=== PATIENT | male | born 1975 | race Caucasian/White ===

== ENCOUNTER 2016-05-21 12:42 | Day surgery (SDC) | payer OTHER ==
[~2016-05-21 12:42] MED LIST: DIPHENHYDRAMINE HCL 50 MG/ML VIAL ONE; EPINEPHRINE INJ 1 MG/10 ML DISP.SYRIN ONE; FLUMAZENIL INJ 0.5 MG/5 ML VIAL IV ONE; GLUCAGON,HUMAN RECOMB 1 MG INJ ONE; MIDAZOLAM 2 MG/2 ML INJ ONE; NALOXONE HCL INJ/PF 0.4 MG/1 ML SDV ONE; ONDANSETRON HCL INJ/PF 4 MG/2 ML SDV ONE; PROMETHAZINE HCL INJ 25 MG/1 ML VIAL ONE
[2016-05-21] MEDS: MIDAZOLAM 2 MG/2 ML INJ ONE ×2 (12:53→13:00)
[2016-05-21] MEDS: FENTANYL CITRATE INJ/PF 100 MCG/2 ML AMPUL ONE ×2 (12:55→12:57)
--- NOTE | 2016-05-21 13:14 | Operative Report ---
Operative Report DATE OF SURGERY: 05/21/16 Operative Report: The risks, benefits and alternatives of the procedure including risks of bleeding, perforation requiring surgery are explained to the patient in detail and informed consent is obtained. Patient was place in a left lateral decubital position. Timeout is called. Conscious sedation medications are provided. A rectal examination is done which did not reveal any masses tears or fissures. An Olympus was scope was inserted into the patient's rectum. Keeping the lumen in site at all times scope was then gradually advanced all the way to the cecum. The cecum as identified by the usual anatomical landmarks including the ileocecal valve as well as the appendiceal office. Photodocumentation was obtained. Prep was reasonably good. The scope was then sequentially pulled back via the rest symptoms of the colon including the ascending colon, hepatic flexure, splenic flexure descending colon and finally into the rectosigmoid portions of the colon. Retroflexion maneuvers performed. PREOPERATIVE DIAGNOSIS: Rectal bleeding. POSTOPERATIVE DIAGNOSIS: Internal hemorrhoids. Mild right-sided inflammation status post biopsy OPERATION: Colonoscopy with biopsy SURGEON: JEFF ZEPEDA ANESTHESIA: Moderate Sedation - 4 mg of Versed, 100 g of fentanyl. TISSUE REMOVED OR ALTERED: Colon specimens are obtained COMPLICATIONS: None. ESTIMATED BLOOD LOSS: none. INTRAOPERATIVE FINDINGS: No masses, AVMs, diverticulosis noted. Internal hemorrhoids likely explaining the patient's rectal bleeding. PROCEDURE: Patient tolerated the procedure well. No immediate postprocedure complications are noted. Patient is discharged in good condition. Discharge date 05/21/2016. Discharge diet: Regular. Discharge activity: Regular. 2-3 follow-up to discuss findings. Patient is instructed to call the office or proceed to the emergency room after any further problems or questions. We'll follow-up on biopsies.
[2016-05-21 14:06] VITALS: BP 113/52
== END 2016-05-21 14:10 | disposition home or self-care (01) ==
LOC: END 12:42
PROVIDERS: ATTEND Internal Medicine Gastroenterology
PROC: 0DBF8ZX Excision of Right Large Intestine, Via Natural or Artificial Opening Endoscopic, Diagnostic (ICD-10-PCS; principal; 2016-05-21 13:00)
DX: K52.9 Noninfective gastroenteritis and colitis, unspecified (principal); K64.8 Other hemorrhoids; K62.5 Hemorrhage of anus and rectum; Z79.899 Other long term (current) drug therapy; Z79.82 Long term (current) use of aspirin; Z79.84 Long term (current) use of oral hypoglycemic drugs
CPT/HCPCS: 45380; 82962; 88305 ×2; J2250; J3010; J2405; J0171; J1200; J1610; J2310; J2550; J3490